=== PATIENT | male | born 1995 | race Caucasian/White ===

== ENCOUNTER 2023-05-11 17:19 | Emergency (ER) | payer SELFPAY ==
[~2023-05-11] VITALS: Ht 170.2 cm; Wt 84.1 kg
[2023-05-11 17:26] VITALS: BP 125/66; PULSE 96; RESP 18; TEMP 97.9
== END 2023-05-11 19:01 | disposition left against medical advice (07) ==
LOC: EMS 17:19
DX: F41.0 Panic disorder [episodic paroxysmal anxiety] (principal); Z53.21 Procedure and treatment not carried out due to patient leaving prior to being seen by health care provider
CPT/HCPCS: 93005; 99281; Z7502